=== PATIENT | female | born 1975 | race Caucasian/White ===

== ENCOUNTER 2016-12-23 11:01 | Emergency (ER) | payer SELFPAY ==
[~2016-12-23] VITALS: Ht 157.5 cm; Wt 70.0 kg
[~2016-12-23 11:01] MED LIST: PRED10PA PO; Z.0.NO CURRENT MEDS; ZITH250T PO
[2016-12-23 11:03] VITALS: BP 231/123; PULSE 89; RESP 16; TEMP 98.2; O2SAT 99
[2016-12-23 11:05] VITALS: BP 242/118
--- NOTE | 2016-12-23 11:35 | PD ---
HPI Chief Complaint: Cold / Flu Symptoms Time Seen by Provider: 11:35 Travel History International Travel<30 days: No Contact w/Intl Traveler<30days: No Traveled to known affect area: No History of Present Illness HPI 41-year-old female presents to the emergency department for evaluation of flulike symptoms that started 2 days ago. Patient reports right ear pain with drainage, cough, congestion, nausea, vomiting, diarrhea. She reports one episode of vomiting today. She reports multiple episodes of diarrhea, denies any blood in her stool. She denies any fevers, reports chills. She denies chest pain or shortness of breath. Patient denies any abdominal pain. She does report history of hypertension states she was previously on lisinopril daily and Procardia as needed. She states she has not taken these medications in approximately 2 months due to lack of insurance. She denies any chance of reporting previous hysterectomy. PFSH Past Medical History Diminished Hearing: No Hypertension: Yes Tetanus Vaccination: > 5 Years Influenza Vaccination: Yes ?: Not LMP: 2004 : 3 Para: 3 Past Surgical History Section: Yes Hysterectomy: Yes Social History Alcohol Use: Yes (RARELY) Tobacco Use: Yes Substance Use: No Allergies-Medications (Allergen,Severity, Reaction): Coded Allergies: No Known Allergies (Verified , 12/23/16) Reported Meds & Prescriptions Reported Meds & Active Scripts Active Review of Systems Except as stated in HPI: all other systems reviewed are Neg Physical Exam Narrative GENERAL: Well-developed well-nourished female patient, ambulatory. Afebrile. SKIN: Warm and dry. HEAD: Normocephalic. Atraumatic. ENT: Mucosa pink and moist. No erythema or exudates. No uvular edema. No uvular , palatal, or tonsillar deviation. Airway patent. Nasal turbinates appear normal without nasal blood, purulent drainage or septal hematoma. Right ear canal is swollen, erythematous with purulent drainage. I am unable to visualize the right tympanic membrane due to swelling in the ear canal. Left tympanic membrane and ear canal are within normal limits. EYES: No scleral icterus. No injection or drainage. NECK: Supple, trachea midline. No JVD or lymphadenopathy. CARDIOVASCULAR: Regular rate and rhythm without murmurs, gallops, or rubs. RESPIRATORY: Breath sounds equal bilaterally. No accessory muscle use. Lungs sounds are clear to auscultation. GASTROINTESTINAL: Abdomen soft, non-tender, nondistended. MUSCULOSKELETAL: No cyanosis, or edema. BACK: Nontender without obvious deformity. No CVA tenderness. Female Data Data Last Documented VS Vital Signs Date Time Temp Pulse Resp B/P Pulse Ox O2 Delivery O2 Flow Rate FiO2 12/23/16 12:13 194/82 12/23/16 11:56 81 16 97 12/23/16 11:03 98.2 Orders Iv Access Insert/Monitor (12/23/16 11:34) Complete Blood Count With Diff (12/23/16 11:34) Basic Metabolic Panel (Bmp) (12/23/16 11:34) Sodium Chlor 0.9% 1000 Ml Inj (Ns 1000 M (12/23/16 11:45) Ondansetron Inj (Zofran Inj) (12/23/16 11:45) Loperamide (Imodium) (12/23/16 11:45) Lisinopril (Prinivil) (12/23/16 11:45) Lidocaine 1% Inj (50 Ml) (Xylocaine 1% I (12/23/16 11:45) Influenzae A/B Antigen (12/23/16 11:50) Labs Laboratory Tests Test 12/23/16 11:40 White Blood Count 8.3 TH/MM3 Red Blood Count 4.88 MIL/MM3 Hemoglobin 15.0 GM/DL Hematocrit 43.9 % Mean Corpuscular Volume 90.0 FL Mean Corpuscular Hemoglobin 30.6 PG Mean Corpuscular Hemoglobin 34.0 % Concent Red Cell Distribution Width 14.4 % Platelet Count 239 TH/MM3 Mean Platelet Volume 9.4 FL Neutrophils (%) (Auto) 69.3 % Lymphocytes (%) (Auto) 22.1 % Monocytes (%) (Auto) 6.9 % Eosinophils (%) (Auto) 1.3 % Basophils (%) (Auto) 0.4 % Neutrophils # (Auto) 5.8 TH/MM3 Lymphocytes # (Auto) 1.8 TH/MM3 Monocytes # (Auto) 0.6 TH/MM3 Eosinophils # (Auto) 0.1 TH/MM3 Basophils # (Auto) 0.0 TH/MM3 CBC Comment DIFF FINAL Differential Comment Sodium Level 140 MEQ/L Potassium Level 3.6 MEQ/L Chloride Level 104 MEQ/L Carbon Dioxide Level 26.1 MEQ/L Anion Gap 10 MEQ/L Blood Urea Nitrogen 5 MG/DL Creatinine 0.68 MG/DL Estimat Glomerular Filtration 96 ML/MIN Rate Random Glucose 109 MG/DL Calcium Level 9.1 MG/DL [facility] Medical Decision Making Medical Screen Exam Complete: Yes Emergency Medical Condition: Yes Medical Record Reviewed: Yes Differential Diagnosis Influenza versus viral syndrome versus otitis media versus otitis externa versus hypertension Narrative Course 41-year-old female presents to the emergency department for evaluation of flulike symptoms for 2 days. Patient reports history of chronic hypertension and has been off her medications for 2 months. She denies any associated complaints. Blood pressure recheck once in exam room is 175/82. IV access established. CBC, BMP, and influenza are ordered and pending. Patient is given normal saline 1 L IV bolus, Zofran 4 mg IV, Imodium 4 mg by mouth, lisinopril 20 mg by mouth. Ear wick is placed. CBC is unremarkable. BMP shows no acute abnormality. Influenza is negative. Patient appears on exam. She'll be discharged prescription for Cortisporin ear drops, amoxicillin 5 unable to visualize tympanic membrane, Zofran for nausea, Imodium for diarrhea, lisinopril for her hypertension. She is instructed to follow-up with a primary care physician for better management of her hypertension. She is given information on community clinically financial symptoms. Patient verbalizes understanding and agreement. The patient was discharged in stable condition with instructions, including return instructions and follow up instructions. Diagnosis Primary Impression: Otitis externa Qualified Code: H60.501 - Acute otitis externa of right ear, unspecified type Additional Impressions: Viral syndrome Hypertension Qualified Code: I10 - Essential hypertension Referrals: Primary Care Physician call for appointment Patient Instructions: Chronic Hypertension (ED), General Instructions, Otitis Externa (ED), Viral Syndrome (ED) Departure Forms: Tests/Procedures, Work Release Enter return to work date: Dec 25, 2016 Additional Instructions: Use antibiotic eardrops as directed. I gave you a coupon for this for [facility]. Take amoxicillin as directed until gone. This is free at [facility]. Take lisinopril daily for your chronic high blood pressure. This is free at [facility]. Take ondansetron as directed as needed for nausea/vomiting. I gave you a coupon for this at [facility]. Take Imodium as directed as needed for diarrhea. Drink plenty of fluids. Follow-up with your primary care physician. Return to the emergency department for any acute worsening of symptoms. Med/Other Pt SpecificInfo: Prescription(s) given Scripts Loperamide (Imodium A-D)2 Mg Cap2 Mg PO Q6H PRN (DIARRHEA) #16 CAP Ref 0 Prov:Vicki Reyes 12/23/16 Ondansetron Odt 4 Mg Tab4 Mg SL Q6HR PRN (Nausea/Vomiting) #12 TAB Ref 0 Prov:Vicki Reyes 12/23/16 Epddifyg-Qbpumzwnz-SZ Otic Drops (Cortisporin HC Otic Drops)3.5-10,000-1 Mg- Units-% Soln4 Drop RIGHT EAR QID #1 BOTTLE Ref 0 Prov:Vicki Reyes 12/23/16 Amoxicillin 875 Mg Oup863 Mg PO BID 10 Days Ref 0 Prov:Vicki Reyes 12/23/16 Lisinopril 20 Mg Tab20 Mg PO DAILY #30 TAB Ref 0 Prov:Vicki Reyes 12/23/16 Disposition: 01 DISCHARGE HOME Condition: Stable Vicki Reyes Dec 23, 2016 11:35
[2016-12-23] MEDS ORDERED: LISINOPRIL 20 MG TAB PO ONE (11:45)
[2016-12-23] MEDS ORDERED: LIDOCAINE HCL 1% 50 ML VIAL INFIL ONE (11:45)
[2016-12-23] MEDS ORDERED: SODIUM CHLOR 0.9% 1000 ML INJ 1,000 ML IV ONE (11:45)
[2016-12-23] MEDS ORDERED: LOPERAMIDE HCL 2 MG CAP PO ONE (11:45)
[2016-12-23] MEDS ORDERED: ONDANSETRON HCL 4 MG/2 ML VIAL IV PUSH ONE (11:45)
[2016-12-23 11:56] VITALS: BP 175/82; PULSE 81; RESP 16; O2SAT 97
[2016-12-23 12:13] VITALS: BP 194/82
[2016-12-23 12:26] LABS: AUTOMATED NEUTROPHIL # 5.8 TH/MM3 (1.8-7.7); BASOPHIL % 0.4 % (0.0-2.0); EOSINOPHIL # 0.1 TH/MM3 (0-0.4); EOSINOPHIL % 1.3 % (0.0-4.0); HEMATOCRIT 43.9 % (35.0-46.0); HEMO FLAGS DIFF FINAL; LYMPH % 22.1 % (9.0-44.0); LYMPHOCYTE # 1.8 TH/MM3 (1.0-4.8); MEAN CORPUSCULAR HEMOGLOBIN 30.6 PG (27.0-34.0); MONO % 6.9 % (0.0-8.0); NEUT % 69.3 % (16.0-70.0); PLATELET COUNT 239 TH/MM3 (150-450); RED BLOOD COUNT 4.88 MIL/MM3 (4.00-5.30); RED CELL DISTRIBUTION WIDTH 14.4 % (11.6-17.2); WHITE BLOOD COUNT 8.3 TH/MM3 (4.0-11.0)
[2016-12-23 12:44] LABS: BICARBONATE 26.1 MEQ/L (21.0-32.0); POTASSIUM 3.6 MEQ/L (3.5-5.1)
[2016-12-23] MEDS ORDERED: ONDA4TAB7 SL (12:53)
[2016-12-23] MEDS ORDERED: AMOX875T PO (12:53)
[2016-12-23] MEDS ORDERED: LOPE7.5C PO (12:53)
[2016-12-23] MEDS ORDERED: LISI-515 PO (12:53)
[2016-12-23] MEDS ORDERED: CORT1SOL RIGHT EAR (12:53)
[2016-12-23 13:32] VITALS: BP 136/64
== END 2016-12-23 14:12 | disposition home or self-care (01) ==
LOC: NEPA 11:01
DX: H60.501 Unspecified acute noninfective otitis externa, right ear (principal); B34.9 Viral infection, unspecified; I10 Essential (primary) hypertension; R05 Cough; Z72.0 Tobacco use
CPT/HCPCS: 80048; 85025; 87804; 96374; 99284; J2405; J7030